=== PATIENT | female | born 1945 | race African-American/Black ===

== ENCOUNTER 2017-07-05 01:54 | Observation (INO) ==
[2017-07-05] MEDS ORDERED: FUROSEMIDE 100 MG/10 ML VIAL IV STA (02:13)
[2017-07-05] MEDS ORDERED: AZITHROMYCIN INJ 500 MG in SODIUM CHLORIDE 0.9% 250 ML IV STA (02:13)
[2017-07-05] MEDS ORDERED: methylPREDNISolone SOD SUC 125 MG/2 ML VIAL IV STA (02:13)
[2017-07-05 02:24] LABS: Basophils % 0.3 % (0.0-0.8); Eosinophils # 1.2 10*3/uL (0.0-0.87); Eosinophils % 12.7 % (0.00-10.9); Hemoglobin 9.5 GM/DL (12.0-16.0); Immature Granulocytes % 0.3 %; Immature Granulocytes Absolute 0.03 #; Lymphocytes % 42.3 % (21.3-54.2); Mean Corpuscular HGB Conc 31.7 GM/DL (32-36); Mean Corpuscular Hemoglobin 27 PG (27-34); Mean Corpuscular Volume 85.2 FL (87-102); Mean Platelet Volume 8.8 FL (9.6-12.0); Monocytes # 0.6 10*3/uL (0.11-0.8); Monocytes % 6.3 % (1.7-12.7); Neutrophils # 3.6 10*3/uL (1.4-7.4); Neutrophils % 38.1 % (38.7-73.9); Platelet Count 337 T/CUMM (130-400); Red Blood Count 3.52 MC/CUMM (3.8-5.5); Red Cell Distribution Width 14.9 % (9.3-17.3); White Blood Count 9.4 T/CUMM (4-12)
[2017-07-05] MEDS ORDERED: AZITHROMYCIN 500 MG VIAL IV ONE (02:27)
[2017-07-05] MEDS ORDERED: methylPREDNISolone SOD SUC 125 MG/2 ML VIAL ONE (02:27)
[2017-07-05] MEDS ORDERED: FUROSEMIDE 40 MG/4 ML VIAL ONE (02:27)
[2017-07-05] MEDS ORDERED: ALBUTEROL 2.5 MG/3 ML NEB RESP TX SCH (02:30)
[2017-07-05 02:34] LABS: INR 0.9; PT Patient Result 9.4 SECS
[2017-07-05 02:45] LABS: Alanine Aminotransferase 17 U/L (13-56); Albumin 3.5 G/DL (3.4-5.0); Alkaline Phosphatase 111 U/L (45-117); Aspartate Amino Transferase 12 U/L (0-37); Bilirubin,Total < 0.39 MG/DL (0.2-1.0); Blood Urea Nitrogen 15 MG/DL (7-18); Calcium 9.7 MG/DL (8.5-10.1); Glucose 128 MG/DL (74-106); Magnesium 1.5 MG/DL (1.8-2.4); Osmolality,Calculated 281.4 MOS/KG (273-304); Potassium 3.3 MMOL/L (3.5-5.1); Sodium 140 MMOL/L (136-145); Total Protein 7.1 G/DL (6.4-8.3); Troponin I Only < 0.015 NG/ML (0.00-0.045)
[2017-07-05] MEDS ORDERED: POTASSIUM CHLORIDE 20 MEQ TABLET PO STA (02:59)
[2017-07-05] MEDS ORDERED: MAGNESIUM SULF RIDER 2 GM in PREMIX 1 EACH IV STA (02:59)
[2017-07-05] MEDS ORDERED: POTASSIUM CHLORIDE 20 MEQ TABLET PO ONE (03:32)
[2017-07-05] MEDS ORDERED: MAGNESIUM SULF RIDER 0 ML IV ONE (03:32)
[2017-07-05] MEDS ORDERED: ACETAMINOPHEN 325 MG TABLET PO PRN (04:04)
[2017-07-05] MEDS ORDERED: ONDANSETRON 4 MG/2 ML VIAL IV PRN (04:04)
[2017-07-05] MEDS ORDERED: GLUCAGON 1 MG VIAL IM PRN (04:04)
[2017-07-05] MEDS ORDERED: DEXTROSE 50% 25 GM/50 ML VIAL IV PRN (04:04)
[2017-07-05] MEDS ORDERED: ALBUTEROL 2.5 MG/3 ML NEB RESP TX PRN (04:13)
[2017-07-05 04:46] LABS: Band Neutrophils 1 % (0-10); Eosinophils 11 % (0-10); Lymphocytes 35 % (20-55); Myelocytes 2 %; Segmented Neutrophils 49 % (50-85); Total Cells Counted 100
[2017-07-05 04:47] LABS: Anisocytosis 1+; Hypochromasia 1+; Platelet Estimate Normal
[2017-07-05] MEDS: ALBUTEROL/IPRATROPIUM 3 ML NEB RESP TX SCH ×3 (06:58→19:23)
[2017-07-05] MEDS: CETIRIZINE 10 MG TABLET PO SCH (09:18)
[2017-07-05] MEDS: PANTOPRAZOLE 40 MG TABLET PO SCH (09:18)
[2017-07-05 10:06] LABS: Basophils % 0.1 % (0.0-0.8); Hematocrit 29.9 VOL% (35.7-47.0); Hemoglobin 9.6 GM/DL (12.0-16.0); Immature Granulocytes % 0.5 %; Immature Granulocytes Absolute 0.04 #; Lymphocytes # 1.2 10*3/uL (1.4-4.0); Lymphocytes % 14.3 % (21.3-54.2); Mean Corpuscular HGB Conc 32.1 GM/DL (32-36); Mean Corpuscular Hemoglobin 28 PG (27-34); Mean Corpuscular Volume 85.9 FL (87-102); Mean Platelet Volume 8.9 FL (9.6-12.0); Monocytes % 0.4 % (1.7-12.7); Neutrophils # 6.9 10*3/uL (1.4-7.4); Neutrophils % 84.7 % (38.7-73.9); Platelet Count 348 T/CUMM (130-400); Red Blood Count 3.48 MC/CUMM (3.8-5.5); Red Cell Distribution Width 14.8 % (9.3-17.3); White Blood Count 8.2 T/CUMM (4-12)
[2017-07-05] MEDS: INSULIN LISPRO 100 UNIT/ML SUBCUT SCH ×4 (10:18→21:06)
[2017-07-05] MEDS: ENOXAPARIN 40 MG/0.4 ML SYRINGE SUBCUT SCH (10:19)
[2017-07-05 10:25] LABS: Lymphocytes 15 % (20-55); Platelet Estimate Adequate; Segmented Neutrophils 83 % (50-85); Total Cells Counted 100
[2017-07-05 10:26] LABS: Giant Platelets Few; Hypochromasia 1+; Ovalocytes Slight
[2017-07-05 10:44] LABS: Calcium 10.1 MG/DL (8.5-10.1); Osmolality,Calculated 290.7 MOS/KG (273-304); Potassium 3.9 MMOL/L (3.5-5.1)
[2017-07-05] MEDS ORDERED: sitaGLIPtin 100 MG TABLET PO PRN (12:23)
[2017-07-05] MEDS: amLODIPine 2.5 MG TABLET PO SCH (12:40)
[2017-07-05] MEDS: THEOPHYLLINE ER 300 MG TABLET PO SCH (12:40)
[2017-07-05] MEDS: methylPREDNISolone SOD SUC 40 MG/1 ML VIAL IV SCH ×2 (12:50→16:52)
[2017-07-05] MEDS ORDERED: methylPREDNISolone SOD SUC 40 MG/1 ML VIAL IV SCH (15:00)
[2017-07-05] MEDS: LEVOFLOXACIN INJ 500 MG in PREMIX 1 EACH IV SCH (16:50)
[2017-07-05] MEDS: metFORMIN 500 MG TABLET PO SCH (21:04)
[2017-07-05] MEDS: INSULIN GLARGINE 100 UNIT/ML SUBCUT SCH (21:04)
[2017-07-06] MEDS: ALBUTEROL/IPRATROPIUM 3 ML NEB RESP TX SCH ×4 (00:21→19:45)
[2017-07-06] MEDS: hydrALAZINE 20 MG/1 ML VIAL IV PRN (01:24)
[2017-07-06] MEDS: methylPREDNISolone SOD SUC 40 MG/1 ML VIAL IV SCH ×4 (01:24→17:15)
[2017-07-06] MEDS ORDERED: ALUM/MAG/SIMETH/LIDO VISC 1:1 30 ML BOTTLE PO ONE (02:02)
[2017-07-06] MEDS ORDERED: LORazepam 2 MG/1 ML VIAL IM ONE (02:13)
[2017-07-06] MEDS ORDERED: LORazepam 2 MG/1 ML VIAL IV ONE (03:00)
[2017-07-06] MEDS ORDERED: AZITHROMYCIN INJ 500 MG in SODIUM CHLORIDE 0.9% 250 ML IV SCH (06:00)
[2017-07-06] MEDS: ENOXAPARIN 40 MG/0.4 ML SYRINGE SUBCUT SCH (08:54)
[2017-07-06] MEDS: amLODIPine 2.5 MG TABLET PO SCH (08:55)
[2017-07-06] MEDS: INSULIN LISPRO 100 UNIT/ML SUBCUT SCH ×4 (08:55→21:35)
[2017-07-06] MEDS: THEOPHYLLINE ER 300 MG TABLET PO SCH (08:55)
[2017-07-06] MEDS: CETIRIZINE 10 MG TABLET PO SCH (08:55)
[2017-07-06] MEDS: metFORMIN 500 MG TABLET PO SCH ×2 (08:56→21:35)
[2017-07-06] MEDS: PANTOPRAZOLE 40 MG TABLET PO SCH (08:56)
[2017-07-06] MEDS: LACTULOSE 20 GM/30 ML UDCUP PO PRN ×2 (15:52→21:39)
[2017-07-06] MEDS: INSULIN GLARGINE 100 UNIT/ML SUBCUT SCH (21:35)
[2017-07-06] MEDS: BUDESONIDE/FORMOTEROL 160-4.5 INHALER 6 GM INH SCH (21:36)
[2017-07-06] MEDS: LEVOFLOXACIN INJ 500 MG in PREMIX 1 EACH IV SCH (21:36)
[2017-07-07] MEDS: methylPREDNISolone SOD SUC 40 MG/1 ML VIAL IV SCH ×2 (01:19→08:07)
[2017-07-07] MEDS: ALBUTEROL/IPRATROPIUM 3 ML NEB RESP TX SCH ×3 (01:52→13:26)
[2017-07-07] MEDS: hydrALAZINE 20 MG/1 ML VIAL IV PRN (04:18)
[2017-07-07 06:18] LABS: Hematocrit 28.5 VOL% (35.7-47.0); Hemoglobin 8.9 GM/DL (12.0-16.0); Immature Granulocytes % 0.6 %; Immature Granulocytes Absolute 0.07 #; Lymphocytes # 1.3 10*3/uL (1.4-4.0); Lymphocytes % 11.3 % (21.3-54.2); Mean Corpuscular HGB Conc 31.2 GM/DL (32-36); Mean Corpuscular Hemoglobin 27 PG (27-34); Mean Corpuscular Volume 85.3 FL (87-102); Mean Platelet Volume 9.2 FL (9.6-12.0); Monocytes # 0.1 10*3/uL (0.11-0.8); Monocytes % 0.8 % (1.7-12.7); Neutrophils # 10.3 10*3/uL (1.4-7.4); Neutrophils % 87.3 % (38.7-73.9); Platelet Count 354 T/CUMM (130-400); Red Blood Count 3.34 MC/CUMM (3.8-5.5); Red Cell Distribution Width 15.4 % (9.3-17.3); White Blood Count 11.7 T/CUMM (4-12)
[2017-07-07 07:01] LABS: Calcium 9.7 MG/DL (8.5-10.1); Magnesium 1.8 MG/DL (1.8-2.4); Osmolality,Calculated 291.3 MOS/KG (273-304); Potassium 4.4 MMOL/L (3.5-5.1)
[2017-07-07] MEDS: INSULIN LISPRO 100 UNIT/ML SUBCUT SCH ×3 (08:02→16:08)
[2017-07-07] MEDS: ENOXAPARIN 40 MG/0.4 ML SYRINGE SUBCUT SCH (08:04)
[2017-07-07] MEDS: THEOPHYLLINE ER 300 MG TABLET PO SCH (08:05)
[2017-07-07] MEDS: PANTOPRAZOLE 40 MG TABLET PO SCH (08:05)
[2017-07-07] MEDS: CETIRIZINE 10 MG TABLET PO SCH (08:05)
[2017-07-07] MEDS: metFORMIN 500 MG TABLET PO SCH (08:05)
[2017-07-07] MEDS: amLODIPine 2.5 MG TABLET PO SCH (08:05)
[2017-07-07] MEDS: LACTULOSE 20 GM/30 ML UDCUP PO PRN (08:07)
[2017-07-07] MEDS: BUDESONIDE/FORMOTEROL 160-4.5 INHALER 6 GM INH SCH (08:14)
[2017-07-07 16:26] VITALS: BP 141/73
== END 2017-07-07 16:25 | disposition home or self-care (01) ==
LOC: EDUNIT# → EDBD → N.ED 01:54 → N.2E 03:54 → INTOOBSV 03:54 → N.2E 05:40
PROVIDERS: ADMIT Hospitalist; ATTEND Hospitalist

== ENCOUNTER 2022-08-16 17:14 | Inpatient (IN) ==
[2022-08-16] MEDS ORDERED: ONDANSETRON 4 MG/2 ML VIAL ONE (18:18)
[2022-08-16] MEDS ORDERED: SODIUM CHLORIDE 0.9% 1,650 ML IV ONE (18:20)
[2022-08-16] MEDS ORDERED: ONDANSETRON 4 MG/2 ML VIAL IV STA (18:26)
[2022-08-16] MEDS ORDERED: SODIUM CHLORIDE 0.9% 1,000 ML IV STA (18:26)
[2022-08-16] MEDS ORDERED: PANTOPRAZOLE 40 MG VIAL IV STA (18:26)
[2022-08-16 18:35] LABS: Basophils % 0.3 % (0.0-0.8); Hematocrit 40.6 VOL% (35.7-47.0); Hemoglobin 13.8 GM/DL (12.0-16.0); Immature Granulocytes % 0.5 %; Immature Granulocytes Absolute 0.05 #; Lymphocytes # 1.5 10*3/uL (1.4-4.0); Lymphocytes % 16.6 % (21.3-54.2); Mean Corpuscular Volume 89.8 FL (87-102); Mean Platelet Volume 8.6 FL (9.6-12.0); Monocytes # 0.5 10*3/uL (0.11-0.8); Monocytes % 5.8 % (1.7-12.7); Neutrophils % 76.8 % (38.7-73.9); Platelet Count 230 T/CUMM (130-400); Red Blood Count 4.52 MC/CUMM (3.8-5.5); Red Cell Distribution Width 13.6 % (9.3-17.3); White Blood Count 9.3 T/CUMM (4-12)
[2022-08-16 19:01] LABS: Albumin 3.6 G/DL (3.4-5.0); Bilirubin,Total 0.4 MG/DL (0.20-1.00); Calcium 9.3 MG/DL (8.5-10.1); Osmolality,Calculated 281.7 MOS/KG (273-304); Potassium 3.6 MMOL/L (3.5-5.1); Total Protein 7.6 G/DL (6.4-8.2)
[2022-08-16 19:48] LABS: Amorphous Crystals,Urine Occasional /HPF (Few); Bacteria,Urine Moderate /HPF (Few); Glucose,Urine (UA) Negative (Negative); Ketones,Urine Negative (Negative); Protein,Urine >=300 mg/dL (Negative); Squamous Epithelial Cell,Urine Occasional /HPF (0-10); Urine Appearance Clear (Clear); Urine Color Yellow (Yellow)
[2022-08-16 19:49] LABS: Bilirubin,Urine Negative (Negative); Blood, Urine Small mg/dL (Negative); Nitrite,Urine Negative (Negative); Urine Urobilinogen 0.2 eU/dL (<2.0)
[2022-08-16] MEDS ORDERED: LEVOFLOXACIN INJ 750 MG/150 ML PREMIX IV STA (19:49)
[2022-08-16] MEDS ORDERED: OSELTAMIVIR 75 MG CAPSULE PO ONE (19:49)
[2022-08-16] MEDS ORDERED: LEVOFLOXACIN INJ 500 MG/100 ML PREMIX IV STA (19:50)
[2022-08-16] MEDS ORDERED: guaiFENesin/DM ER 600-30 MG TABLET PO PRN (20:31)
[2022-08-16] MEDS ORDERED: hydrALAZINE 20 MG/1 ML VIAL IV PRN (20:31)
[2022-08-16] MEDS ORDERED: LEVOFLOXACIN INJ 750 MG/150 ML PREMIX IV SCH (21:00)
[2022-08-16] MEDS ORDERED: OSELTAMIVIR 75 MG CAPSULE PO SCH ×2 (21:00→21:30)
[2022-08-16 21:33] LABS: Hepatitis B Core IgM Quant < 0.05 Index; Hepatitis B Surface Ag Quant < 0.10 Index; Hepatitis B Surface Ag Result Non-Reactive (NonReactive); Hepatitis C Virus Ab Quant < 0.02 Index; Hepatitis C Virus Ab Result Non-Reactive (NonReactive)
[2022-08-16] MEDS ORDERED: ACETAMINOPHEN 500 MG TABLET PO STA (21:37)
[2022-08-16] MEDS: cloNIDine 0.1 MG TABLET PO SCH (21:47)
[2022-08-16] MEDS: DOXYCYCLINE HYCLATE INJ 100 MG in SODIUM CHLORIDE 0.9% 100 ML IV SCH (21:48)
[2022-08-16] MEDS: INSULIN REGULAR 100 UNIT/ML SUBCUT SCH (21:59)
[2022-08-16] MEDS: SODIUM CHLORIDE 0.9% 1,000 ML IV SCH (22:00)
[2022-08-16] MEDS: ENOXAPARIN 40 MG/0.4 ML SYRINGE SUBCUT SCH (22:04)
[2022-08-16] MEDS: METOPROLOL TARTRATE 100 MG TABLET PO SCH (22:05)
[2022-08-16] MEDS: methylPREDNISolone SOD SUC 40 MG/1 ML VIAL IV SCH (22:05)
[2022-08-16] MEDS: BUDESONIDE/FORMOTEROL 160-4.5 INHALER 6 GM INH SCH (22:30)
[2022-08-17 04:34] LABS: Basophils % 0.1 % (0.0-0.8); Hematocrit 34.9 VOL% (35.7-47.0); Hemoglobin 11.6 GM/DL (12.0-16.0); Immature Granulocytes % 0.7 %; Immature Granulocytes Absolute 0.05 #; Lymphocytes # 0.6 10*3/uL (1.4-4.0); Lymphocytes % 8.6 % (21.3-54.2); Mean Corpuscular HGB Conc 33.2 GM/DL (32-36); Mean Corpuscular Volume 92.3 FL (87-102); Mean Platelet Volume 8.8 FL (9.6-12.0); Monocytes # 0.2 10*3/uL (0.11-0.8); Monocytes % 2.3 % (1.7-12.7); NRBC # 0.02 10*3/uL; Neutrophils % 88.3 % (38.7-73.9); Platelet Count 164 T/CUMM (130-400); Red Blood Count 3.78 MC/CUMM (3.8-5.5); Red Cell Distribution Width 13.9 % (9.3-17.3); White Blood Count 7.5 T/CUMM (4-12)
[2022-08-17 05:28] LABS: Albumin 2.5 G/DL (3.4-5.0); Bilirubin,Total 0.6 MG/DL (0.20-1.00); Calcium 7.5 MG/DL (8.5-10.1); Osmolality,Calculated 288.4 MOS/KG (273-304); Potassium 3.7 MMOL/L (3.5-5.1); Risk Ratio 1.96; Thyroid Stimulating Hormone 0.354 uIU/ml (0.358-3.74); Total Protein 6.1 G/DL (6.4-8.2); VLDL Cholesterol 17.6 MG/DL
[2022-08-17] MEDS: SODIUM CHLORIDE 0.9% 1,000 ML IV SCH ×3 (06:39→22:10)
[2022-08-17] MEDS: INSULIN REGULAR 100 UNIT/ML SUBCUT SCH ×4 (09:40→22:08)
[2022-08-17] MEDS: methylPREDNISolone SOD SUC 40 MG/1 ML VIAL IV SCH (10:15)
[2022-08-17] MEDS: BUDESONIDE/FORMOTEROL 160-4.5 INHALER 6 GM INH SCH ×2 (10:15→22:09)
[2022-08-17] MEDS: DOXYCYCLINE HYCLATE INJ 100 MG in SODIUM CHLORIDE 0.9% 100 ML IV SCH ×2 (10:26→22:10)
[2022-08-17] MEDS: ONDANSETRON 4 MG/2 ML VIAL IV PRN (10:28)
[2022-08-17] MEDS: cloNIDine 0.1 MG TABLET PO SCH ×2 (14:16→22:14)
[2022-08-17] MEDS: METOPROLOL TARTRATE 100 MG TABLET PO SCH ×2 (14:16→22:14)
[2022-08-17] MEDS: THEOPHYLLINE ER 300 MG TABLET PO SCH (14:16)
[2022-08-17] MEDS: amLODIPine 10 MG TABLET PO SCH (14:16)
[2022-08-17] MEDS: PANTOPRAZOLE 40 MG TABLET PO SCH (14:16)
[2022-08-17] MEDS: ALBUTEROL/IPRATROPIUM 3 ML NEB RESP TX SCH (18:55)
[2022-08-17] MEDS ORDERED: LEVOFLOXACIN INJ 250 MG/50 ML PREMIX IV SCH (21:00)
[2022-08-17] MEDS: ENOXAPARIN 40 MG/0.4 ML SYRINGE SUBCUT SCH (22:14)
[2022-08-17] MEDS: OSELTAMIVIR 75 MG CAPSULE PO SCH (22:14)
[2022-08-17] MEDS: guaiFENesin/DM ER 600-30 MG TABLET PO SCH (22:14)
[2022-08-18] MEDS: ALBUTEROL/IPRATROPIUM 3 ML NEB RESP TX SCH ×4 (00:05→19:20)
[2022-08-18] MEDS: methylPREDNISolone SOD SUC 40 MG/1 ML VIAL IV SCH ×2 (00:39→08:44)
[2022-08-18 05:22] LABS: Hematocrit 35.5 VOL% (35.7-47.0); Hemoglobin 11.8 GM/DL (12.0-16.0); Immature Granulocytes % 0.7 %; Immature Granulocytes Absolute 0.05 #; Lymphocytes # 0.7 10*3/uL (1.4-4.0); Lymphocytes % 10.2 % (21.3-54.2); Mean Corpuscular HGB Conc 33.2 GM/DL (32-36); Mean Platelet Volume 9.2 FL (9.6-12.0); Monocytes # 0.1 10*3/uL (0.11-0.8); NRBC # 0.02 10*3/uL; Neutrophils % 87.1 % (38.7-73.9); Platelet Count 174 T/CUMM (130-400); Red Blood Count 3.86 MC/CUMM (3.8-5.5); Red Cell Distribution Width 13.8 % (9.3-17.3)
[2022-08-18 05:59] LABS: Albumin 2.2 G/DL (3.4-5.0); Bilirubin,Total 0.5 MG/DL (0.20-1.00); Calcium 8.1 MG/DL (8.5-10.1); Osmolality,Calculated 297.1 MOS/KG (273-304); Potassium 3.6 MMOL/L (3.5-5.1)
[2022-08-18] MEDS: SODIUM CHLORIDE 0.9% 1,000 ML IV SCH ×2 (08:10→13:04)
[2022-08-18] MEDS: cloNIDine 0.1 MG TABLET PO SCH ×2 (08:38→20:44)
[2022-08-18] MEDS: guaiFENesin/DM ER 600-30 MG TABLET PO SCH (08:39)
[2022-08-18] MEDS: PANTOPRAZOLE 40 MG TABLET PO SCH (08:39)
[2022-08-18] MEDS: amLODIPine 10 MG TABLET PO SCH (08:39)
[2022-08-18] MEDS: METOPROLOL TARTRATE 100 MG TABLET PO SCH (08:39)
[2022-08-18] MEDS: THEOPHYLLINE ER 300 MG TABLET PO SCH (08:39)
[2022-08-18] MEDS: ONDANSETRON 4 MG/2 ML VIAL IV PRN (08:41)
[2022-08-18] MEDS: BUDESONIDE/FORMOTEROL 160-4.5 INHALER 6 GM INH SCH ×2 (08:44→20:49)
[2022-08-18] MEDS: INSULIN REGULAR 100 UNIT/ML SUBCUT SCH ×4 (08:44→20:45)
[2022-08-18] MEDS: ENOXAPARIN 40 MG/0.4 ML SYRINGE SUBCUT SCH (20:45)
[2022-08-18] MEDS: LEVOFLOXACIN 250 MG TABLET PO SCH (20:49)
[2022-08-19] MEDS: ONDANSETRON 4 MG/2 ML VIAL IV PRN ×2 (00:33→07:47)
[2022-08-19] MEDS: methylPREDNISolone SOD SUC 40 MG/1 ML VIAL IV SCH ×3 (00:39→21:06)
[2022-08-19] MEDS: guaiFENesin/DM ER 600-30 MG TABLET PO SCH ×3 (00:41→21:10)
[2022-08-19] MEDS: OSELTAMIVIR 75 MG CAPSULE PO SCH ×2 (00:41→21:05)
[2022-08-19] MEDS: SODIUM CHLORIDE 0.9% 1,000 ML IV SCH ×2 (00:49→05:54)
[2022-08-19] MEDS: ALBUTEROL/IPRATROPIUM 3 ML NEB RESP TX SCH ×4 (01:10→19:16)
[2022-08-19 04:56] LABS: Hematocrit 33.2 VOL% (35.7-47.0); Hemoglobin 11.1 GM/DL (12.0-16.0); Immature Granulocytes Absolute 0.07 #; Lymphocytes # 0.5 10*3/uL (1.4-4.0); Mean Corpuscular HGB Conc 33.4 GM/DL (32-36); Mean Corpuscular Volume 92.2 FL (87-102); Mean Platelet Volume 9.5 FL (9.6-12.0); Monocytes # 0.3 10*3/uL (0.11-0.8); NRBC # 0.02 10*3/uL; Platelet Count 176 T/CUMM (130-400); Red Cell Distribution Width 14.1 % (9.3-17.3); White Blood Count 7.2 T/CUMM (4-12)
[2022-08-19 05:20] LABS: Albumin 2.1 G/DL (3.4-5.0); Bilirubin,Total 0.6 MG/DL (0.20-1.00); Calcium 8.2 MG/DL (8.5-10.1); Osmolality,Calculated 298.8 MOS/KG (273-304); Potassium 3.1 MMOL/L (3.5-5.1); Total Protein 5.4 G/DL (6.4-8.2)
[2022-08-19] MEDS: INSULIN REGULAR 100 UNIT/ML SUBCUT SCH ×4 (08:47→21:07)
[2022-08-19] MEDS: PANTOPRAZOLE 40 MG TABLET PO SCH (08:48)
[2022-08-19] MEDS: amLODIPine 10 MG TABLET PO SCH (08:48)
[2022-08-19] MEDS: THEOPHYLLINE ER 300 MG TABLET PO SCH (08:48)
[2022-08-19] MEDS: cloNIDine 0.1 MG TABLET PO SCH ×2 (08:48→21:06)
[2022-08-19] MEDS: BUDESONIDE/FORMOTEROL 160-4.5 INHALER 6 GM INH SCH ×2 (10:52→21:10)
[2022-08-19] MEDS: POLYETHYLENE GLYCOL POWDER 17 GM PACK PO SCH (10:53)
[2022-08-19] MEDS: LACTULOSE 20 GM/30 ML UDCUP PO SCH ×2 (12:26→17:14)
[2022-08-19 13:06] LABS: Mycoplasma pneumoniae Ab Inter SEE COMMENTS; Mycoplasma pneumoniae Ab, IgG Positive (Negative); Mycoplasma pneumoniae Ab, IgM Negative (Negative)
[2022-08-19] MEDS: METOCLOPRAMIDE 10 MG/2 ML VIAL IV SCH (17:14)
[2022-08-19] MEDS: LEVOFLOXACIN 250 MG TABLET PO SCH (21:05)
[2022-08-19] MEDS: ENOXAPARIN 40 MG/0.4 ML SYRINGE SUBCUT SCH (21:06)
[2022-08-19] MEDS: SIMETHICONE CHEW 125 MG TABLET PO SCH (21:06)
[2022-08-20] MEDS: LACTULOSE 20 GM/30 ML UDCUP PO SCH ×4 (00:17→17:02)
[2022-08-20] MEDS: ALBUTEROL/IPRATROPIUM 3 ML NEB RESP TX SCH ×4 (00:28→19:40)
[2022-08-20] MEDS: METOCLOPRAMIDE 10 MG/2 ML VIAL IV SCH ×4 (00:45→17:02)
[2022-08-20 06:00] LABS: Hematocrit 32.5 VOL% (35.7-47.0); Hemoglobin 10.7 GM/DL (12.0-16.0); Immature Granulocytes % 2.1 %; Immature Granulocytes Absolute 0.14 #; Lymphocytes # 0.5 10*3/uL (1.4-4.0); Lymphocytes % 6.7 % (21.3-54.2); Mean Corpuscular HGB Conc 32.9 GM/DL (32-36); Mean Corpuscular Volume 92.6 FL (87-102); Mean Platelet Volume 9.4 FL (9.6-12.0); Monocytes # 0.4 10*3/uL (0.11-0.8); Monocytes % 6.2 % (1.7-12.7); NRBC # 0.03 10*3/uL; Platelet Count 178 T/CUMM (130-400); Red Blood Count 3.51 MC/CUMM (3.8-5.5); Red Cell Distribution Width 14.7 % (9.3-17.3); White Blood Count 6.8 T/CUMM (4-12)
[2022-08-20 06:20] LABS: Albumin 2.2 G/DL (3.4-5.0); Bilirubin,Total 0.6 MG/DL (0.20-1.00); Calcium 8.8 MG/DL (8.5-10.1); Osmolality,Calculated 296.4 MOS/KG (273-304); Potassium 3.1 MMOL/L (3.5-5.1); Total Protein 5.6 G/DL (6.4-8.2)
[2022-08-20] MEDS: INSULIN REGULAR 100 UNIT/ML SUBCUT SCH ×4 (09:14→21:48)
[2022-08-20] MEDS: POLYETHYLENE GLYCOL POWDER 17 GM PACK PO SCH (09:14)
[2022-08-20] MEDS: THEOPHYLLINE ER 300 MG TABLET PO SCH (09:15)
[2022-08-20] MEDS: SIMETHICONE CHEW 125 MG TABLET PO SCH ×2 (09:15→21:48)
[2022-08-20] MEDS: cloNIDine 0.1 MG TABLET PO SCH ×2 (09:15→21:46)
[2022-08-20] MEDS: guaiFENesin/DM ER 600-30 MG TABLET PO SCH ×2 (09:15→21:48)
[2022-08-20] MEDS: methylPREDNISolone SOD SUC 40 MG/1 ML VIAL IV SCH ×2 (09:15→09:26)
[2022-08-20] MEDS: PANTOPRAZOLE 40 MG TABLET PO SCH (09:15)
[2022-08-20] MEDS: amLODIPine 10 MG TABLET PO SCH (09:15)
[2022-08-20] MEDS: BUDESONIDE/FORMOTEROL 160-4.5 INHALER 6 GM INH SCH ×2 (09:16→21:49)
[2022-08-20] MEDS: SODIUM CHLORIDE 23.4% CONC INJ 38.5 MEQ, SODIUM BICARB INJ 50 MEQ, POTASSIUM CHLORIDE I... IV SCH (11:44)
[2022-08-20] MEDS ORDERED: POTASSIUM CHLORIDE 20 MEQ TABLET PO ONE (13:36)
[2022-08-20] MEDS: ENOXAPARIN 40 MG/0.4 ML SYRINGE SUBCUT SCH (21:48)
[2022-08-20] MEDS: LEVOFLOXACIN 250 MG TABLET PO SCH (21:48)
[2022-08-20] MEDS: predniSONE 20 MG TABLET PO SCH (21:49)
[2022-08-20] MEDS: OSELTAMIVIR 75 MG CAPSULE PO SCH (21:49)
[2022-08-21] MEDS: METOCLOPRAMIDE 10 MG/2 ML VIAL IV SCH ×3 (00:13→12:23)
[2022-08-21] MEDS: LACTULOSE 20 GM/30 ML UDCUP PO SCH ×4 (00:13→17:08)
[2022-08-21] MEDS: ALBUTEROL/IPRATROPIUM 3 ML NEB RESP TX SCH ×4 (00:35→19:01)
[2022-08-21] MEDS: SODIUM CHLORIDE 23.4% CONC INJ 38.5 MEQ, SODIUM BICARB INJ 50 MEQ, POTASSIUM CHLORIDE I... IV SCH (01:47)
[2022-08-21 05:24] LABS: Basophils % 0.1 % (0.0-0.8); Hematocrit 29.9 VOL% (35.7-47.0); Immature Granulocytes % 1.2 %; Immature Granulocytes Absolute 0.08 #; Lymphocytes # 0.7 10*3/uL (1.4-4.0); Lymphocytes % 9.8 % (21.3-54.2); Mean Corpuscular HGB Conc 33.4 GM/DL (32-36); Mean Corpuscular Volume 91.4 FL (87-102); Monocytes # 0.3 10*3/uL (0.11-0.8); Monocytes % 4.8 % (1.7-12.7); NRBC # 0.02 10*3/uL; Neutrophils % 84.1 % (38.7-73.9); Platelet Count 176 T/CUMM (130-400); Red Blood Count 3.27 MC/CUMM (3.8-5.5); Red Cell Distribution Width 14.7 % (9.3-17.3); White Blood Count 6.8 T/CUMM (4-12)
[2022-08-21 06:03] LABS: Albumin 2.2 G/DL (3.4-5.0); Bilirubin,Total 0.6 MG/DL (0.20-1.00); Calcium 8.6 MG/DL (8.5-10.1); Osmolality,Calculated 297.3 MOS/KG (273-304); Potassium 4.6 MMOL/L (3.5-5.1); Total Protein 5.2 G/DL (6.4-8.2)
[2022-08-21] MEDS: INSULIN REGULAR 100 UNIT/ML SUBCUT SCH ×4 (09:30→21:42)
[2022-08-21] MEDS: cloNIDine 0.1 MG TABLET PO SCH ×2 (09:31→21:41)
[2022-08-21] MEDS: THEOPHYLLINE ER 300 MG TABLET PO SCH (09:31)
[2022-08-21] MEDS: amLODIPine 10 MG TABLET PO SCH (09:31)
[2022-08-21] MEDS: PANTOPRAZOLE 40 MG TABLET PO SCH (09:31)
[2022-08-21] MEDS: SIMETHICONE CHEW 125 MG TABLET PO SCH ×2 (09:31→21:43)
[2022-08-21] MEDS: predniSONE 20 MG TABLET PO SCH ×2 (09:31→21:44)
[2022-08-21] MEDS: guaiFENesin/DM ER 600-30 MG TABLET PO SCH ×2 (09:31→21:43)
[2022-08-21] MEDS: POLYETHYLENE GLYCOL POWDER 17 GM PACK PO SCH (09:32)
[2022-08-21] MEDS: BUDESONIDE/FORMOTEROL 160-4.5 INHALER 6 GM INH SCH ×2 (09:32→21:44)
[2022-08-21] MEDS ORDERED: hydrOXYzine HCL 10 MG TABLET PO PRN (13:07)
[2022-08-21] MEDS ORDERED: METOCLOPRAMIDE 10 MG/2 ML VIAL IV PRN (13:10)
[2022-08-21] MEDS: LEVOFLOXACIN 250 MG TABLET PO SCH (21:43)
[2022-08-21] MEDS: ENOXAPARIN 40 MG/0.4 ML SYRINGE SUBCUT SCH (21:43)
[2022-08-21] MEDS: OSELTAMIVIR 75 MG CAPSULE PO SCH (21:44)
[2022-08-22] MEDS: ALBUTEROL/IPRATROPIUM 3 ML NEB RESP TX SCH ×3 (00:44→07:22)
[2022-08-22] MEDS: LACTULOSE 20 GM/30 ML UDCUP PO SCH ×3 (02:20→13:00)
[2022-08-22 06:16] LABS: Basophils % 0.3 % (0.0-0.8); Hematocrit 32.3 VOL% (35.7-47.0); Hemoglobin 10.4 GM/DL (12.0-16.0); Immature Granulocytes Absolute 0.19 #; Lymphocytes # 1.2 10*3/uL (1.4-4.0); Lymphocytes % 12.7 % (21.3-54.2); Mean Corpuscular HGB Conc 32.2 GM/DL (32-36); Mean Corpuscular Volume 92.6 FL (87-102); Mean Platelet Volume 9.3 FL (9.6-12.0); Monocytes # 0.5 10*3/uL (0.11-0.8); Monocytes % 5.4 % (1.7-12.7); NRBC # 0.03 10*3/uL; Neutrophils % 79.6 % (38.7-73.9); Platelet Count 206 T/CUMM (130-400); Red Blood Count 3.49 MC/CUMM (3.8-5.5); White Blood Count 9.5 T/CUMM (4-12)
[2022-08-22 06:38] LABS: Albumin 2.6 G/DL (3.4-5.0); Bilirubin,Total 0.6 MG/DL (0.20-1.00); Calcium 9.2 MG/DL (8.5-10.1); Osmolality,Calculated 293.7 MOS/KG (273-304); Potassium 4.6 MMOL/L (3.5-5.1); Total Protein 6.1 G/DL (6.4-8.2)
[2022-08-22] MEDS: INSULIN REGULAR 100 UNIT/ML SUBCUT SCH ×2 (10:05→12:39)
[2022-08-22 11:47] VITALS: BP 148/59
[2022-08-22] MEDS: POLYETHYLENE GLYCOL POWDER 17 GM PACK PO SCH (12:40)
[2022-08-22] MEDS: amLODIPine 10 MG TABLET PO SCH (12:40)
[2022-08-22] MEDS: cloNIDine 0.1 MG TABLET PO SCH (12:40)
[2022-08-22] MEDS: THEOPHYLLINE ER 300 MG TABLET PO SCH (12:41)
[2022-08-22] MEDS: predniSONE 20 MG TABLET PO SCH (12:41)
[2022-08-22] MEDS: guaiFENesin/DM ER 600-30 MG TABLET PO SCH (12:41)
[2022-08-22] MEDS: SIMETHICONE CHEW 125 MG TABLET PO SCH (12:41)
[2022-08-22] MEDS: PANTOPRAZOLE 40 MG TABLET PO SCH (12:41)
[2022-08-22] MEDS: BUDESONIDE/FORMOTEROL 160-4.5 INHALER 6 GM INH SCH (12:44)
== END 2022-08-22 16:25 | disposition home health service (06) | DRG 193 ==
LOC: N.ED 17:14 → SUATTDRO 20:30 → N.EDINP 20:30 → N.5E 08-17 14:48
PROVIDERS: ADMIT Family Medicine; ATTEND Internal Medicine